=== PATIENT | female | born 1990 | race Hispanic/Latino ===

== ENCOUNTER → 2023-09-28 10:12 | Outpatient (REF) | payer OTHER, SELFPAY ==
[2023-09-28 11:52] LABS: Glycohemoglobin (HgbA1c) 6.8 % (4.0-5.6)
[2023-09-28 11:58] LABS: ALT (SGPT) 34 U/L (0-35); AST (SGOT) 29 U/L (14-36); Albumin 4.7 g/dl (3.5-5.0); Alkaline Phosphatase 83 U/L (38-126); Blood Urea Nitrogen 14 mg/dl (7-17); Calcium 9.4 mg/dl (8.4-10.2); Carbon Dioxide 24 mmol/L (22-30); Chloride 105 mmol/L (98-107); GGTP 39 U/L (12-43); Glucose 156 mg/dl (70-99); Potassium 4.4 mmol/L (3.5-5.1); Sodium 137 mmol/L (135-145); Total Bilirubin 1.6 mg/dl (0.2-1.3); Total Protein 7.9 g/dl (6.3-8.2); eGFR > 60.00
[2023-09-28 12:16] LABS: Vitamin D, 25-OH*** 25.6 ng/mL (30-80)
== END ==
LOC: REG 10:12
PROVIDERS: ATTENDING PHYSICIAN Nurse Practitioner Adult Health
DX: E11.9 Type 2 diabetes mellitus without complications (principal); K76.0 Fatty (change of) liver, not elsewhere classified; E55.9 Vitamin D deficiency, unspecified
CPT/HCPCS: 36415; 80053; 82306; 82977; 83036

== ENCOUNTER → 2024-01-01 08:40 | Outpatient (REF) | payer OTHER, SELFPAY ==
[2024-01-01 09:54] LABS: Glycohemoglobin (HgbA1c) 6.6 % (4.0-5.6)
[2024-01-01 12:17] LABS: ALT (SGPT) 22 U/L (0-35); AST (SGOT) 21 U/L (14-36); Albumin 4.5 g/dl (3.5-5.0); Alkaline Phosphatase 79 U/L (38-126); Blood Urea Nitrogen 16 mg/dl (7-17); Calcium 9.4 mg/dl (8.4-10.2); Carbon Dioxide 25 mmol/L (22-30); Chloride 107 mmol/L (98-107); Glucose 126 mg/dl (70-99); Potassium 4.3 mmol/L (3.5-5.1); Sodium 141 mmol/L (135-145); Total Bilirubin 1.3 mg/dl (0.2-1.3); Total Protein 7.5 g/dl (6.3-8.2); eGFR > 60.00
[2024-01-01 12:22] LABS: Vitamin D, 25-OH*** 32.3 ng/mL (30-80)
[2024-01-01 14:01] LABS: Microalbumin, Random Urine 0.7 mg/dl (0.6-1.7); Microalbumin/creatinine Ratio 8.4 mg/g
== END ==
LOC: REG 08:40
PROVIDERS: ATTENDING PHYSICIAN Nurse Practitioner Adult Health
DX: E11.9 Type 2 diabetes mellitus without complications (principal); E55.9 Vitamin D deficiency, unspecified
CPT/HCPCS: 36415; 80053; 82043; 82306; 82570; 83036

== ENCOUNTER → 2024-03-26 09:38 | Outpatient (REF) | payer OTHER, SELFPAY ==
[2024-03-26 12:16] LABS: ALT (SGPT) 24 U/L (0-35); AST (SGOT) 22 U/L (14-36); Albumin 4.6 g/dl (3.5-5.0); Alkaline Phosphatase 82 U/L (38-126); Blood Urea Nitrogen 15 mg/dl (7-17); Calcium 9.2 mg/dl (8.4-10.2); Carbon Dioxide 22 mmol/L (22-30); Chloride 106 mmol/L (98-107); Glucose 123 mg/dl (70-99); Potassium 4.5 mmol/L (3.5-5.1); Sodium 141 mmol/L (135-145); Total Bilirubin 1.1 mg/dl (0.2-1.3); Total Protein 7.3 g/dl (6.3-8.2); eGFR > 60.00
[2024-03-26 14:07] LABS: Glycohemoglobin (HgbA1c) 6.4 % (4.0-5.6)
== END ==
LOC: CLINIC 09:38
PROVIDERS: ATTENDING PHYSICIAN Nurse Practitioner Adult Health
DX: E11.9 Type 2 diabetes mellitus without complications (principal)
CPT/HCPCS: 36415; 80053; 83036

== ENCOUNTER → 2024-06-25 12:25 | Outpatient (REF) | payer OTHER, SELFPAY ==
[2024-06-25 14:40] LABS: ALT (SGPT) 35 U/L (0-35); AST (SGOT) 29 U/L (14-36); Albumin 4.9 g/dl (3.5-5.0); Alkaline Phosphatase 74 U/L (38-126); Blood Urea Nitrogen 12 mg/dl (7-17); Calcium 9.2 mg/dl (8.4-10.2); Carbon Dioxide 20 mmol/L (22-30); Chloride 107 mmol/L (98-107); Glucose 110 mg/dl (70-99); HDL Cholesterol 54 mg/dl; LDL Cholesterol, Calculated 145 mg/dl; Potassium 4.1 mmol/L (3.5-5.1); Sodium 141 mmol/L (135-145); Total Bilirubin 1.4 mg/dl (0.2-1.3); Total Cholesterol 240 mg/dl (50-199); Triglyceride 209 mg/dl (10-149); Very Low Density Lipoprotein 41 mg/dl (0-30); eGFR > 60.00
[2024-06-26 09:04] LABS: Glycohemoglobin (HgbA1c) 6.5 % (4.0-5.6)
== END ==
LOC: CLINIC 12:25
PROVIDERS: ATTENDING PHYSICIAN Nurse Practitioner Adult Health
DX: E11.9 Type 2 diabetes mellitus without complications (principal)
CPT/HCPCS: 36415; 80053; 80061; 83036

== ENCOUNTER 2024-06-29 16:24 | Emergency (ER) | payer OTHER, SELFPAY ==
[2024-06-29 16:27] VITALS: BP 128/82
--- NOTE | 2024-06-29 18:47 | ED.GENMED ---
History of Present Illness
General
Chief Complaint: Bowel Problem
Source: patient
Exam Limitations: none
Time Seen by Provider: 06/29/24 18:34
History of Present Illness
History of Present Illness:
33-year-old female with [id number] diabetes presents with rectal pain and difficulty moving bowels. She has been straining to have a bowel movement since about 8 days ago. She denies any fever nausea or vomiting. She is currently on
her menstrual cycle. No urinary symptoms. She denies any significant abdominal pain but does note more so rectal pain. No noted blood in the stool. She had a bowel movement today.
Phy Exam
Physical Exam
Physical Exam:
General: Well-appearing female no acute respiratory distress
HEENT: Normocephalic atraumatic
Heart: Regular rate and rhythm no murmurs
Lungs: Clear no wheeze
Abdomen is soft nontender nondistended no guarding or rebound
Extremities: No cyanosis
Course
Orders/Labs/Results
Orders:
Orders
06/29/24 18:59
Ketorolac [Toradol] 15 mg IV NOW STA
Test Result ONCE
06/29/24 19:00
CT Abd/pelvis W Iv Cont Urgent
Comment:
Reason For Exam: rectal pain
06/29/24 19:03
Complete Blood Count/With Diff Urgent
Comprehensive Metabolic Panel Urgent
HCG, Serum Qualitative Screen Urgent
06/29/24 21:03
Amoxicillin 875 mg/Clav 125 mg [Augmentin 875 mg/125 mg] 1 tablet PO NOW STA
Abnormal Lab Results
06/29/24
19:03
Glucose 105 H mg/dl
(70-99)
Total Bilirubin 1.6 H mg/dl
(0.2-1.3)
ALT 36 H U/L
(0-35)
06/29/24 19:03
06/29/24 19:03
Vital Signs
Initial and Last Documented VS:
Initial Vital Signs
Temp Pulse Resp BP Pulse Ox
98 F 74 18 128/82 99
06/29/24 16:27 06/29/24 16:27 06/29/24 16:27 06/29/24 16:27 06/29/24 16:27
Last Documented Vital Signs
Temp Pulse Resp BP Pulse Ox
98 F 57 20 149/89 100
06/29/24 16:27 06/29/24 19:45 06/29/24 19:45 06/29/24 18:57 06/29/24 19:45
MDM/Problems Addressed
Differential Diagnosis Includes:
Patient with rectal pain and difficulty having bowel movements. Will perform rectal exam with female etl lead in the room. Differential could include proctitis versus thrombosed hemorrhoid versus abscess versus constipation
Abdomen exam is benign
*Critical Care Note
Total Time (30-74mins, 75-104mins- exclusive of procedures): Not Applicable
Update Note
Update Note:
Nurse Mendy, female etl lead was present in the room for rectal exam. There is no external hemorrhoids. There may be a small fissure noted over the anterior anus however internal exam was quite painful for the patient. There is no impaction.
Concern for proctitis versus abscess versus constipation [place]. Will check labs test and CT of the abdomen Toradol ordered for pain
CT report reviewed by [facility] which demonstrates evidence of proctitis. Will start Augmentin and continue this at home. She did receive relief with Toradol. Will admit advised Motrin or Tylenol at home for pain. Please note the entire
history and physical was performed with [place]-speaking relay assembler via the language line
ED Attending Note
-
Portions of this chart may have been created with voice recognition software.� Occasional wrong word or��sound alike� substitutions may have occurred due to the inherent limitations of voice recognition software.
Discharge Plan
Departure
Patient Disposition: Home (Routine Discharge)
Date of Disposition: 06/29/24
Time of Disposition: 21:09
Patient with high blood pressure during this ER visit?: No
Discharge Problem:
Acute proctitis
Instructions: Proctitis
Prescriptions:
New
amoxicillin-pot clavulanate 875-125 mg tablet
1 tab PO BID Qty: 20 0RF
Referrals:
NONE,* [Family Provider] -
Activity Restrictions/Additional Instructions:
Continue with Tylenol or ibuprofen for pain. Use Augmentin as directed. Return if worse otherwise follow-up with the clinic
Interventions
Interventions:
*Risk Screen - Suicide Last Done: 06/29/24 16:27
*General Assessment Last Done: 06/29/24 16:27
*Neglect/Abuse Screening Last Done: 06/29/24 16:27
PE-Hbxjpi-Edaadifkty Assessment Last Done: 06/29/24 18:39
Discharge Date and Time
Print Language: CITIZEN [place]
[2024-06-29 18:57] VITALS: BP 149/89
[2024-06-29 19:08] LABS: % Basophils 0.3 % (0-2); % Eosinophils 0.7 % (0-6); % Immature Granulocytes 0.2 % (0-0.5); % Lymphocytes 31.1 % (20.5-51.1); % Monocytes 4.2 % (1.7-9.3); % Neutrophils 63.5 % (42.2-75.2); Absolute Eosinophils 0.1 10^3/uL (0-0.7); Absolute Lymphocytes 2.8 10^3/uL (1.2-3.4); Absolute Monocytes 0.4 10^3/uL (0.1-0.6); Absolute Neutrophils 5.7 10^3/uL (1.4-6.5); Hematocrit 40.7 % (37.0-47.0); Hemoglobin 14.4 g/dL (12.0-16.0); Mean Corp Hgb Conc. 35.4 g/dL (33.0-37.0); Mean Corpuscular Hgb 30.2 pg (27.0-31.0); Mean Corpuscular Volume 85.3 fL (81.0-99.0); Mean Platelet Volume 9.2 fL (7.4-10.4); Nucleated Red Blood Cells % 0 %; Platelet Count 350 10^3/uL (130-400); Red Blood Cell Count 4.77 10^6/uL (4.20-5.40); Red Cell Dist. Width 11.9 % (11.5-14.5)
[2024-06-29] MEDS: TORADOL 15 MG IV (19:11)
[2024-06-29 19:12] VITALS: BMI 34.2
[2024-06-29 19:22] LABS: HCG, Serum Qualitative Screen Negative
[2024-06-29 19:25] LABS: ALT (SGPT) 36 U/L (0-35); AST (SGOT) 26 U/L (14-36); Alkaline Phosphatase 78 U/L (38-126); Blood Urea Nitrogen 7 mg/dl (7-17); Calcium 9.9 mg/dl (8.4-10.2); Carbon Dioxide 24 mmol/L (22-30); Chloride 105 mmol/L (98-107); Estimated Creatinine Clearance > 125 ml/min; Glucose 105 mg/dl (70-99); Potassium 3.9 mmol/L (3.5-5.1); Sodium 140 mmol/L (135-145); Total Bilirubin 1.6 mg/dl (0.2-1.3); Total Protein 8.1 g/dl (6.3-8.2); eGFR > 60.00
[2024-06-29 20:46] VITALS: BP 106/70
[2024-06-29 21:00] VITALS: BP 111/58
[2024-06-29] MEDS: AUGMENTIN 875 MG/125 MG 1 TABLET PO (21:49)
== END 2024-06-29 21:51 | disposition home or self-care (01) ==
LOC: EMR 16:24
PROVIDERS: Physician Assistant; EMERGENCY PHYSICIAN Emergency Medicine
DX: K62.89 Other specified diseases of anus and rectum (principal); E11.9 Type 2 diabetes mellitus without complications
CPT/HCPCS: 96374; 99284; 74177; 80053; 84703; 85025; Q9967

== ENCOUNTER → 2024-11-25 10:27 | Outpatient (REF) | payer OTHER, SELFPAY ==
[2024-11-25 11:17] LABS: % Basophils 0.3 % (0-2); % Eosinophils 0.8 % (0-6); % Immature Granulocytes 0.6 % (0-0.5); % Lymphocytes 26.6 % (20.5-51.1); % Monocytes 4.7 % (1.7-9.3); Absolute Eosinophils 0.1 10^3/uL (0-0.7); Absolute Immature Granulocytes 0.1 10^3/uL (0-0.05); Absolute Lymphocytes 2.5 10^3/uL (1.2-3.4); Absolute Monocytes 0.4 10^3/uL (0.1-0.6); Absolute Neutrophils 6.3 10^3/uL (1.4-6.5); Hematocrit 39.4 % (37.0-47.0); Hemoglobin 13.8 g/dL (12.0-16.0); Mean Corpuscular Hgb 31.4 pg (27.0-31.0); Mean Corpuscular Volume 89.5 fL (81.0-99.0); Nucleated Red Blood Cells % 0 %; Platelet Count 314 10^3/uL (130-400); Red Cell Dist. Width 12.2 % (11.5-14.5); White Blood Cell Count 9.4 10^3/uL (4.8-10.8)
[2024-11-25 11:37] LABS: Blood Urea Nitrogen 10 mg/dl (7-17); Calcium 9.5 mg/dl (8.4-10.2); Carbon Dioxide 24 mmol/L (22-30); Chloride 109 mmol/L (98-107); Glucose 113 mg/dl (70-99); Potassium 4.8 mmol/L (3.5-5.1); Sodium 142 mmol/L (135-145); eGFR > 60.00
[2024-11-25 12:06] LABS: Glycohemoglobin (HgbA1c) 5.9 % (4.0-5.6)
== END ==
LOC: CLINIC 10:27
PROVIDERS: ATTENDING PHYSICIAN Family Medicine
DX: Z01.818 Encounter for other preprocedural examination (principal); E11.9 Type 2 diabetes mellitus without complications
CPT/HCPCS: 36415; 80048; 83036; 85025

== ENCOUNTER 2024-11-27 06:11 | Day surgery (SDC) | payer OTHER, SELFPAY ==
[2024-11-27] VITALS (9 sets, daily range): BP systolic 103–124; BP diastolic 46–74; BMI 32.4
[2024-11-27] MEDS: TYLENOL 1000 MG PO (07:48)
[2024-11-27] MEDS: NORMOSOL-R/PLASMALYTE-A 1000 IV (07:50)
[2024-11-27 07:52] LABS: Glucose - Point of Care 135 mg/dl (70-99)
[2024-11-27 10:30] LABS: Glucose - Point of Care 174 mg/dl (70-99)
== END 2024-11-27 11:42 | disposition home or self-care (01) ==
LOC: SDS 06:11
PROVIDERS: ATTENDING PHYSICIAN Surgery
DX: K60.1 Chronic anal fissure (principal); K62.89 Other specified diseases of anus and rectum
CPT/HCPCS: 46200; 46922; 82962

== ENCOUNTER → 2025-06-04 10:51 | Outpatient (REF) | payer OTHER, SELFPAY ==
[2025-06-04 11:40] LABS: Hematocrit 40.0 % (37.0-47.0); Hemoglobin 14.0 g/dL (12.0-16.0); Mean Corp Hgb Conc. 35.0 g/dL (33.0-37.0); Mean Corpuscular Volume 89.9 fL (81.0-99.0); Platelet Count 345 10^3/uL (130-400); Red Cell Dist. Width 11.9 % (11.5-14.5)
[2025-06-04 12:00] LABS: Glycohemoglobin (HgbA1c) 6.5 % (4.0-5.9)
[2025-06-04 12:25] LABS: Microalb - Urine Creatinine 219.300 mg/dl
[2025-06-04 12:26] LABS: Vitamin D, 25-OH*** 27.8 ng/mL (30-80)
[2025-06-04 12:29] LABS: Microalbumin, Random Urine 10.8 mg/dl (0.6-1.7)
[2025-06-04 12:49] LABS: ALT (SGPT) 37 U/L (0-35); AST (SGOT) 23 U/L (14-36); Albumin 4.6 g/dl (3.5-5.0); Alkaline Phosphatase 77 U/L (38-126); Blood Urea Nitrogen 14 mg/dl (7-17); Calcium 9.5 mg/dl (8.4-10.2); Carbon Dioxide 24 mmol/L (22-30); Chloride 106 mmol/L (98-107); Glucose 117 mg/dl (70-99); HDL Cholesterol 45 mg/dl; LDL Cholesterol, Calculated 157 mg/dl; Potassium 4.1 mmol/L (3.5-5.1); Sodium 138 mmol/L (135-145); Total Protein 7.7 g/dl (6.3-8.2); Very Low Density Lipoprotein 34 mg/dl (0-30); eGFR > 60.00
[2025-06-07 06:23] LABS: HPV, High Risk Not Detected; HPV, High Risk Source Cervical
[2025-06-07 09:59] LABS: Chlamydia trachomatis,ThinPrep Negative (Negative); Neisseria gonorrhoeae,ThinPrep Negative (Negative); Specimen Source Cervical
== END ==
LOC: CLINIC 10:51
PROVIDERS: ATTENDING PHYSICIAN Nurse Practitioner Adult Health
DX: E11.9 Type 2 diabetes mellitus without complications (principal); E55.9 Vitamin D deficiency, unspecified; Z12.4 Encounter for screening for malignant neoplasm of cervix; Z20.2 Contact with and (suspected) exposure to infections with a predominantly sexual mode of transmission
CPT/HCPCS: 36415; 80053; 80061; 82043; 82306; 82570; 83036; 85027; 87491; 87591; 87624; G0123

== ENCOUNTER → 2025-06-20 13:53 | Outpatient (REF) | payer OTHER, SELFPAY | LOC: RAD 13:53 | PROVIDERS: ATTENDING PHYSICIAN Obstetrics & Gynecology Gynecology; FAMILY PHYSICIAN Obstetrics & Gynecology Gynecology | DX: T83.32XA Displacement of intrauterine contraceptive device, initial encounter (principal) | CPT/HCPCS: 76830 ==